=== PATIENT | male | born 1995 | race African-American/Black ===

== ENCOUNTER 2024-01-22 08:01 | Emergency (ER) | payer MEDICAID, OTHER ==
[~2024-01-22] VITALS: Ht 170.2 cm; Wt 64.0 kg
[2024-01-22 08:03] VITALS: O2SAT 99
[2024-01-22 08:38] LABS: BASOPHILS % 0.9 % (0.0-2.0); EOSINOPHILS % 1.7 % (0.0-5.0); HEMATOCRIT. 41.3 % (42.0-52.0); HEMOGLOBIN. 13.7 g/dL (14.0-18.0); LYMPHOCYTES % 40.3 % (20.0-50.0); MEAN CORPUSCULAR HGB CONC 33.2 g/dL (31.0-37.0); MEAN CORPUSCULAR VOLUME 96.6 fL (80.0-94.0); MEAN PLATELET VOLUME 8.2 fl (7.4-10.4); MONOCYTES % 6.5 % (2.0-8.0); NEUTROPHILS % 50.6 % (40.0-76.0); PLATELET 206 x1000/uL (130-400); RED BLOOD CELL COUNT 4.27 mill/uL (4.7-6.1); RED CELL DISTRIBUTION WIDTH 12.8 % (11.6-14.6); WHITE BLOOD COUNT 6.7 x1000/uL (4.5-11.0)
[2024-01-22 09:00] LABS: CHLORIDE 107 mEq/L (98-107); POTASSIUM 3.9 mEq/L (3.5-5.1); SODIUM 141 mEq/L (136-145)
[2024-01-22 09:01] LABS: CALCIUM 9.5 mg/dL (8.7-10.4); CARBON DIOXIDE 27 mEq/L (21-32)
[2024-01-22 09:06] LABS: GLUCOSE 82 mg/dL (70-105); UREA NITROGEN BLOOD 9 mg/dL (9-23)
[2024-01-22 09:07] LABS: VALPROIC ACID 38.1 ug/mL (50-100)
[2024-01-22 09:08] LABS: CARBAMAZEPINE < 0.4 ug/mL (4-12)
[2024-01-22] MEDS: DIVALPROEX SODIUM 250MG ER TABLET PO NR (10:16)
[2024-01-22] MEDS: CARBAMAZEPINE 100MG TABLET CHEW PO NR (10:16)
[2024-01-22 10:50] VITALS: BP 115/65; PULSE 68; RESP 14; TEMP 98.4
== END 2024-01-22 10:50 | disposition home or self-care (01) ==
LOC: ER 08:01
DX: R56.9 Unspecified convulsions (principal)
CPT/HCPCS: 80048; 80156; 83605; 80165; 85025; 36415; 93005; 99284; Z7610 ×4